=== PATIENT | male | born 1995 | race Caucasian/White ===

== ENCOUNTER 2021-05-08 15:01 | Emergency (ER) | payer OTHER, SELFPAY ==
[2021-05-08 15:09] VITALS: BP 127/73; PULSE 75; RESP 16; TEMP 36.6; O2SAT 99
[2021-05-08 15:21] VITALS: BP 127/73; PULSE 75; RESP 16; TEMP 36.6; O2SAT 99
--- NOTE | 2021-05-08 15:45 | ED.GENADULT ---
HPI - General Adult General Chief complaint: Headache Stated complaint: Fever, headache and fatigue Time Seen by Provider: 05/08/21 15:20 Source: patient and RN notes reviewed Mode of arrival: ambulatory Limitations: no limitations History of Present Illness HPI narrative: 26-year-old male presents with complaints of headache with aura for the past 2 days. ?Maurice reports constant headache, tactile fever, fatigue, and intermittent dizziness for the past 24 hours. GROVES is not the WORST one of his life. No neck stiffness. No URI symptoms. No head injury. ?History of migraines. ?Denies vision change, confusion, or seizure activity. ?Remains active. ?The patient reports he has not been diagnosed with COVID-19. ?The patient reports he is not waiting for the results of a COVID-19 lab test. ?The patient reports he does not have weakness or myalgia. The patient reports he does not have a new or worsening cough or shortness of breath. ?The patient reports he does not have any rhinorrhea, congestion, loss of taste or smell, sore throat, and diarrhea. Denies recent traveling. Denies concerns for COVID-19 or exposures. ?At this time, the patient is not suspected of having COVID-19. Some parts of this dictation were generated by voice recognition software and may contain typographical and/or grammatical inaccuracies. Related Data Allergies Allergy/AdvReac Type Severity Reaction Status Date / Time No Known Allergies Allergy Verified 05/08/21 15:20 Review of Systems Review of Systems: Narrative: CONSTITUTIONAL: Denies chills, sweats. Complaints of tactile fever, fatigue. EYES: Denies visual changes, redness, discharge. ENT: Denies rhinorrhea, congestion, sore throat, otalgia. CARDIOVASCULAR: Denies chest pain, palpitations, edema. RESPIRATORY: Denies dyspnea, wheezing, cough. GASTROINTESTINAL: Denies abdominal pain, nausea, vomiting, or diarrhea. GENITOURINARY: Denies dysuria, hematuria, abnormal discharge. SKIN: Denies rash or itching. MUSCULOSKELETAL: Denies acute back pain, joint pain, or myalgia. NEUROLOGIC: Denies numbness or focal weakness. Complaints of headaches, intermittent dizziness. PSYCHIATRIC: Denies anxiety or depression. All systems reviewed & are unremarkable except as noted in HPI and below. [facility] Past Medical History Medical History (Updated 05/09/21 @ 00:01 by Sameera Dsouza) Depression History of broken nose Surgical History Surgical History (Updated 05/08/21 @ 16:18 by JONES Zhang) History of nasal surgery Family History Family History (Updated 05/08/21 @ 16:19 by JONES Zhnag) Father Alcoholic Mother Alive and well Social History Social History (Updated 05/08/21 @ 16:20 by JONES Zhang) Smoking status: Never smoker Tobacco type: cigarettes Second hand tobacco smoke exposure: No Alcohol intake: current Substance use: never Substance use type: does not use Living arrangements: alone Occupation/Education: occupation Gender identity (if verbalized by the patient): Male Comments At time of signature, agree with the nurse past medical, surgical, social, and family history. There is relevant patient's history pertinent to the presenting complaint, no relevant family history pertinent to the presenting complaint. Exam Narrative: Exam Narrative: GENERAL: This is a well-nourished, well-developed patient, in no apparent distress. Talks in full sentences, no language deficiencies and ambulates with steady gait without dyspnea. HEAD: Normocephalic, atraumatic. EYES: PERRL. Sclera clear/white. Vision is grossly intact. EOMI, no nystagmus noted. EARS: External ears normal, auditory canals clear and without drainage, RT TM normal without perforation, LT TM mild erythema without bulging, tenderness, or drainage. Hearing grossly intact. NOSE: External nose normal with no obvious nasal discharge, nares with mild redness and enlarged turbinates, no rhinorr
[2021-05-08 15:51] VITALS: BP 103/55; BP 119/65; PULSE 71; PULSE 73
[2021-05-08] MEDS: KETOROLAC (*BKC) 60 MG/2 ML VIAL IM (15:56)
[2021-05-08 15:59] VITALS: BP 113/72; PULSE 73
== END 2021-05-08 16:36 | disposition home or self-care (01) ==
PROVIDERS: Emergency Provider Nurse Practitioner Family; PCP Internal Medicine
DX: R51.9 Headache, unspecified (principal)
CPT/HCPCS: 96372; 99213; G0463; J1885